=== PATIENT | male | born 1955 ===

== ENCOUNTER 2018-05-07 12:40 | Day surgery (SDC) | payer MEDICARE, BC ==
[~2018-05-07 12:40] MED LIST: Buffered Lidocaine 0.9% SYRIN* 5 ML/SYR SYRINGE INTRADERM ONE; MITOMYCIN OPHTHALMIC SCH; STERILE WATER FOR INJ OPHTHALMIC SCH
[2018-05-07] MEDS ORDERED: Midazolam* 1 MG/ML 2 ML VIAL (2 MG) ONE ×2 (15:10→15:15)
[2018-05-07] MEDS ORDERED: fentaNYL* 50 MCG/ML 2 ML VIAL (100 MCG VIAL) ONE (15:10)
[2018-05-07] MEDS ORDERED: Lidocain 1% EPI 1:100,000 * 30 ML MDV ONE (15:13)
[2018-05-07] MEDS ORDERED: Gelfoam 12-7 ADSORBABL SPONGE* 1 EA SPONGE ONE (15:15)
--- NOTE | 2018-05-08 03:26 | OP ---
\DATE OF OPERATION: 05/07/18 - [facility] DATE OF : 51 SURGEON: Iain Segura MD [employer] TEACHER: None. ANESTHESIA: Topical, subconjunctival, and intravenous sedation. PRE-OP DIAGNOSIS: Pterygia, left eye. POST-OP DIAGNOSIS: Pterygia, left eye. OPERATIVE PROCEDURE: Excision of pterygia, left eye with amniotic membrane graft and mitomycin C. COMPLICATIONS: None. BLOOD LOSS: Minimal. DESCRIPTION OF PROCEDURE: The patient was brought to the operating room and received intravenous sedation. A drop of tetracaine was placed in his left eye. The patient was prepped and draped in the usual sterile fashion for ophthalmic surgery and attention was directed to the left eye where a speculum was placed. A marking pen was used to rikki the borders of the pterygia. Approximately, 0.5 cc of 1% lidocaine with epinephrine was injected on a 30-gauge needle underneath the body of the pterygia. A Mita scissor was used to excise the pterygia with 2 radial cuts and a vertical cut nasally. The pterygia was avulsed towards the cornea with sharp and blunt dissection. This large pterygia covered approximately half of the cornea. The specimen was sent to the pathology lab. A hua ethan was used to ethan the cornea and the limbus smooth. Hemostasis was achieved with cauterization at the limbus and in the scleral bed. Tenon's capsule was excised as well. The resulting scleral defect measuring approximately 6 x 12 mm was at this point dry. The gel foam sponge was cut to approximately the same shape and size and dipped in mitomycin 0.4%. It was then placed on the scleral bed for exactly 1 minute. Following removal of the gel foam, the eye was irrigated with a full bottle of balanced saline solution. At this point, amniotic membrane graft was cut to fit the size of the scleral bed. glue was applied to the surface of the scleral bed. The amniotic membrane was then placed over the sclera and gently pinged to the adjoining conjunctival edges. Once the glue was dry and the membrane was secure in place , the speculum was atraumatically removed from the eye. A small amount of Maxitrol ointment was placed on the surface of the eye and the eye was closed, patched, and shielded. The patient was sent to recovery room in stable condition with postop instructions and followup appointment given. [id number]/[facility] #: [id number]
== END 2018-05-07 16:25 | disposition home or self-care (01) ==
LOC: OREAST 12:40
PROVIDERS: ATTEND Ophthalmology
DX: H11.002 Unspecified pterygium of left eye (principal); G47.33 Obstructive sleep apnea (adult) (pediatric)
CPT/HCPCS: 88304; A9270-GY; C1776; J2250; J3010; J9280; V2790